=== PATIENT | female | born 1980 | race Caucasian/White ===

== ENCOUNTER 2019-12-10 22:38 | Inpatient (IN) | payer OTHER ==
[~2019-12-10 22:38] MED LIST: Bupivacaine PF 0.5% 30 ML VIAL ONE
[2019-12-10 23:20] VITALS: BMI 28.7
[2019-12-10] MEDS ORDERED: hydrALAZINE 20 MG/ML VIAL SLOW IVP PRN (23:31)
[2019-12-10] MEDS ORDERED: Ibuprofen 800 MG TAB PO PRN (23:31)
[2019-12-10] MEDS ORDERED: HYDROcodone/Acetaminophen 5/325 mg Tablet PO PRN (23:31)
[2019-12-10] MEDS ORDERED: Ondansetron PF 4 MG/2 ML Vial IVP PRN (23:31)
[2019-12-10] MEDS ORDERED: Lidocaine 1% (PF) 30 ML VIAL SC PRN (23:31)
[2019-12-10] MEDS ORDERED: Butorphanol Tartrate 1 MG/ML VIAL SLOW IVP PRN (23:31)
[2019-12-10] MEDS ORDERED: Promethazine HCl 25 MG/ML VIAL IM PRN (23:31)
[2019-12-10 23:45] LABS: Hemoglobin 13.2 g/dL (12.0-16.0); Mean Corpuscular HGB CONC 34.3 g/dL (32.0-36.0); Mean Corpuscular Hemoglobin 31.2 pg (27.0-31.0); Mean Corpuscular Volume 90.9 fL (78.0-98.0); Mean Platelet Volume 8.2 fL (7.4-10.4); Platelet Count 198 thou/uL (130-400); RBC Distribution Width 13.4 % (11.5-14.5); Red Blood Cell (RBC) Count 4.24 mill/uL (4.20-5.40); White Blood Cell (WBC) Count 9.3 thou/uL (4.8-10.8)
[2019-12-10] MEDS ORDERED: Lactated Ringer's 1,000 ML IV SCH (23:45)
[2019-12-10] MEDS ORDERED: Fentanyl 4 mcg/Bup 0.1% Cadd 100 ML ONE (23:50)
[2019-12-11 00:24] LABS: HBSAg Index 0.26 S/CO (0-0.99); Hep B Surf Ag Non-Reactive S/CO (NonReactive)
[2019-12-11] MEDS ORDERED: EPHEDRINE 25 MG/5 ML SYRINGE SLOW IVP PRN (00:28)
[2019-12-11] MEDS ORDERED: Ondansetron PF 4 MG/2 ML Vial IVP PRN (00:28)
[2019-12-11] MEDS ORDERED: Lactated Ringer's 500 ML IV PRN (00:28)
[2019-12-11] MEDS ORDERED: Acetaminophen 325 MG TAB PO PRN (00:28)
[2019-12-11] MEDS ORDERED: Promethazine HCl 25 MG/ML VIAL IM PRN (00:28)
[2019-12-11] MEDS ORDERED: Naloxone HCl 0.4 mg/ml Vial IVP PRN ×2 (00:28)
[2019-12-11] MEDS ORDERED: diphenhydrAMINE 50 MG/ML VIAL IVP PRN (00:28)
[2019-12-11] MEDS ORDERED: Fentanyl 4 mcg/Bupivacaine 0.1% Cassette 100 ML EPIDURAL SCH (00:30)
[2019-12-11] MEDS ORDERED: Communication Order-Pharmacy FS SCH (00:30)
[2019-12-11 00:31] LABS: Syphilis Antibody Nonreactive (Nonreactive); Syphilis Antibody Index 0.03 S/CO (<1.00 Non-Reactive)
[2019-12-11] MEDS ORDERED: Lactated Ringer's 1,000 ML IV SCH (00:45)
[2019-12-11] MEDS: NS / Oxytocin 40 units/1000ml 1,000 ML IV PRN ×2 (01:15→02:33)
--- NOTE | 2019-12-11 01:42 | PDOC.LDHP ---
Labor and Delivery H&P Chief complaint: contractions, loss of fluid (SROM with clear fluid at 830pm) HPI: SROM at 830pm contractions started after that. Labor progressing quickly. Current gestational age (weeks): 37 Due date: 12/31/19 Dating criteria: last menstrual period Grav: 3 Para: 2 Current complications: none Abnormal US findings: No Past Medical History: Hypothyroidism Current medications: pre-bismark vitamins (Synthroid) Previous surgical history: none Allergies/Adverse Reactions: Allergies Allergy/AdvReac Type Severity Reaction Status Date / Time No Known Allergies Allergy Verified 11/30/19 16:24 Social history: none - Physical Exam Vital signs reviewed and normal: yes General: NAD Heart: RRR Lungs: CTAB Abdomen: gravid Extremeties: no edema FHT: category 1 - Vaginal Exam cm dilated: 5 Effacement: 90% Station: -1 - OB Labs Blood type: A RH: positive Antibody Screen: negative HIV: negative RPR: negative HEPSAg: negative 1 hour GCT: negative GBS: negative Urine drug screen: not done Rubella: immune - Assessment L&D Assessment: term patient in labor - Plan Plan: admit to L&D, anesthesia consult for pain management
--- NOTE | 2019-12-11 01:45 | PDOC.OPDEL ---
OB Operative/Delivery Note Delivery Dr/Surgeon: Wilber Pre-Delivery Diagnosis: active labor Procedure/Post Delivery Dx: spontaneous vaginal delivery (Head OA, no nucal cord , shoulders easily followed, mouth and nares suctioned, baby to warmer then to mom's chest) Weeks gestation: 37 Anesthesia: epidural - Findings A Sex: female - 1 min: 8 - 5 min: 9 - Additional Findings/Plan Placenta delivered: spontaneous Repaired Obstetrical Laceration: none Estimated blood loss: 230 Post delivery plan: routine recovery
[2019-12-11] MEDS ORDERED: hydrALAZINE 20 MG/ML VIAL SLOW IVP PRN (02:44)
[2019-12-11] MEDS ORDERED: diphenhydrAMINE 25 MG CAP PO PRN (02:44)
[2019-12-11] MEDS ORDERED: Benzocaine-Menthol 82.5 ML CAN TOP PRN (02:44)
[2019-12-11] MEDS ORDERED: Lanolin Ointment 7 GM TUBE TOP PRN (02:44)
[2019-12-11] MEDS ORDERED: HYDROcodone/Acetaminophen 5/325 mg Tablet PO PRN (02:44)
[2019-12-11] MEDS ORDERED: Preparation H Ointment 28 GM TUBE PR PRN (02:44)
[2019-12-11] MEDS ORDERED: Milk Of Magnesia 30 ML UDCUP PO PRN (02:44)
[2019-12-11] MEDS ORDERED: NS / Oxytocin 40 units/1000ml 1,000 ML IV SCH (02:44)
[2019-12-11] MEDS ORDERED: Bisacodyl 10 MG SUPP PR PRN (02:44)
[2019-12-11] MEDS ORDERED: Ibuprofen 800 MG TAB PO SCH (06:00)
[2019-12-11] MEDS ORDERED: Ferrous Sulfate 325 MG TAB PO SCH (08:00)
[2019-12-11] MEDS ORDERED: Docusate Calcium (SURFAK) 240 MG CAP PO SCH (09:00)
[2019-12-11 11:45] VITALS: BP 113/70; TEMP 98
--- NOTE | 2019-12-11 13:04 | PDOC.PP ---
Post Progress Note Post Day #: 0 Subjective: Doing well 12 hours . Wants to go home [facility] due to current coronavirus outbreak. well. Bleeding OK. PO intake tolerated: yes Flatus: yes Ambulation: yes Vital Signs (12 hours) Temp Pulse Resp BP Pulse Ox 12/11/19 11:44 98.0 F 72 20 113/70 12/11/19 07:41 98.6 F 63 20 104/65 96 12/11/19 07:40 96 12/11/19 04:17 98.1 F 74 14 112/63 96 12/11/19 03:06 98.2 F 70 12 115/68 98 Weight Weight 178 lb - Physical Examination General: NAD Cardiovascular: no m/r/g, RRR Respiratory: clear to auscultation bilaterally Abdominal: + bowel sounds Extremities: negative homans (B) Neurological: no gross focal deficits Psychiatric: A&Ox3 Result Diagrams: 12/10/19 23:36 Additional Labs: Post Labs Blood Type A POSITIVE 12/10/19 23:36 Hep Bs Antigen Non-Reactive S/CO (NonReactive) 12/10/19 23:36 (1) Vaginal delivery Code(s): O80 - ENCOUNTER FOR FULL-TERM UNCOMPLICATED DELIVERY Status: Acute - Assessment/Plan D/C home F/U in 2 days with the baby F/U in 6 weeks with me
== END 2019-12-11 14:45 | disposition home or self-care (01) | DRG 807 ==
LOC: L&D/OP 22:38 → L&D 23:31 → 3SW 12-11 03:17
PROVIDERS: ADMIT Family Medicine; ATTEND Family Medicine
PROC: 10E0XZZ Delivery of Products of Conception, External Approach (ICD-10-PCS; principal; 2019-12-11)
DX: O99.284 Endocrine, nutritional and metabolic diseases complicating childbirth (principal); Z37.0 Single live birth; E03.9 Hypothyroidism, unspecified; Z3A.37 37 weeks gestation of pregnancy
CPT/HCPCS: 36415; 85027; 86780; 86850; 86900; 86901; 87340